=== PATIENT | male | born 1990 | race Caucasian/White ===

== ENCOUNTER 2017-10-08 19:33 | Emergency (ER) | payer OTHER ==
[~2017-10-08] VITALS: Ht 175.3 cm; Wt 90.5 kg
[2017-10-08 19:56] VITALS: BP 122/59; PULSE 71; RESP 14; TEMP 98; O2SAT 98
--- NOTE | 2017-10-08 20:38 | PD ---
HPI Chief Complaint: Alcohol/Drug Intoxication Time Seen by Provider: 20:22 Travel History International Travel<30 days: No Contact w/Intl Traveler<30days: No Traveled to known affect area: No History of Present Illness HPI Patient is a 27-year-old male presenting to emergency department for detox. Patient states his been using heroin for the last week. He has a history of the same but has [facility] [employer]. Because he has been using he is unable to return there for 3 days until he no longer test positive for drugs. Patient went to [facility] for rehab, they had no beds available and transport him here, they told him that he could spend the night here until the morning. Patient has no other physical complaints at this time. Symptom onset was 1 week ago, they are chronic in nature. Patient has been clean for 3 months prior to this recent binge. Patient last used several hours prior to arrival in the emergency department. PFSH Past Medical History Medical History: Denies Significant Hx Tetanus Vaccination: Unknown Influenza Vaccination: No Past Surgical History Other Surgery: Yes (Titanium Femur) Social History Alcohol Use: Yes (18 pack Beer daily) Tobacco Use: Yes (Vape) Substance Use: Yes (heroin, cocaine, meth, Marijuana, Tarah "I DO EVERYTHING") Allergies-Medications (Allergen,Severity, Reaction): Coded Allergies: Penicillins (Verified Allergy, Unknown, 10/08/17) Reported Meds & Prescriptions Reported Meds & Active Scripts Active No Active Prescriptions or Reported Medications Review of Systems Except as stated in HPI: all other systems reviewed are Neg Psychiatric: Positive: Substance Abuse, No: Anxiety, Depression, Suicidal Ideations, Homicidal Ideation Physical Exam Narrative GENERAL: Well-developed, well-nourished, alert male. Presenting in no acute distress. SKIN: Warm and dry. HEAD: Atraumatic. Normocephalic. EYES: Pupils equal and round. No scleral icterus. No injection or drainage. ENT: No nasal bleeding or discharge. Mucous membranes pink and moist. NECK: Trachea midline. No JVD. CARDIOVASCULAR: Regular rate and rhythm. RESPIRATORY: No accessory muscle use. Clear to auscultation. Breath sounds equal bilaterally. GASTROINTESTINAL: Abdomen soft, non-tender, nondistended. Hepatic and splenic margins not palpable. MUSCULOSKELETAL: Extremities without clubbing, cyanosis, or edema. No obvious deformities. NEUROLOGICAL: Awake and alert. No obvious cranial nerve deficits. Motor grossly within normal limits. Five out of 5 muscle strength in the arms and legs. Normal speech. PSYCHIATRIC: Appropriate mood and affect; insight and judgment normal. Data Data Last Documented VS Vital Signs Date Time Temp Pulse Resp B/P (MAP) Pulse Ox O2 Delivery O2 Flow Rate FiO2 10/08/17 19:56 98.0 71 14 122/59 (80) 98 MDM Medical Decision Making Medical Screen Exam Complete: Yes Emergency Medical Condition: Yes Interpretation(s) Vital Signs Date Time Temp Pulse Resp B/P (MAP) Pulse Ox O2 Delivery O2 Flow Rate FiO2 10/08/17 19:56 98.0 71 14 122/59 (80) 98 Differential Diagnosis Substance abuse versus intoxication versus other Narrative Course Patient is a 27-year-old male presented to emerge department requesting detox. Patient was advised that this service is not offered here and he would have to follow-up with [facility] in the morning. He was advised that he would need to return every day to see if there was a bed available. Patient denied any suicidal homicidal ideations. Patient was encouraged to call a friend or family member to see if he could spend the night with them. He was encouraged return to emergency department for any new or worsening symptoms. Patient verbalized understanding. Patient stable for discharge. Diagnosis Primary Impression: Substance abuse Referrals: [facility] day Present to [facility] between 7 and 8 AM to see if there is a detox bed available. Patient Instructions: General Instructions, Medical Clearance for Substance Abuse Treatment (ED) Additional Instructions: Go to [facility] in the morning to see if there is a detox bed available Avoid use of heroin Return to emergency department for any new or worsening symptoms Med/Other Pt SpecificInfo: No Change to Meds Scripts No Active Prescriptions or Reported Meds Disposition: 01 DISCHARGE HOME Condition: Stable Bridgette Schaffer October 08, 2017 20:38
== END 2017-10-08 21:12 | disposition home or self-care (01) ==
LOC: NEPD 19:33
DX: F11.10 Opioid abuse, uncomplicated (principal); F17.290 Nicotine dependence, other tobacco product, uncomplicated; F14.90 Cocaine use, unspecified, uncomplicated; F15.90 Other stimulant use, unspecified, uncomplicated; F12.90 Cannabis use, unspecified, uncomplicated; F19.90 Other psychoactive substance use, unspecified, uncomplicated; Z88.0 Allergy status to penicillin
CPT/HCPCS: 99281

== ENCOUNTER 2017-10-12 22:42 | Emergency (ER) | payer OTHER ==
[2017-10-12 23:15] VITALS: BP 126/62; PULSE 72; RESP 18; TEMP 98.2; O2SAT 100
--- NOTE | 2017-10-13 00:31 | PD ---
HPI Chief Complaint: Alcohol/Drug Intoxication Time Seen by Provider: 00:16 Travel History International Travel<30 days: No Contact w/Intl Traveler<30days: No Traveled to known affect area: No History of Present Illness HPI 27-year-old white male presents emergency department on a voluntary basis for psychological evaluation. The patient was brought in by PD after falling out at a gas station after using IV heroin. The patient states that he is depressed after being kicked out of a sober living facility at [facility] by the [facility]. He is using IV heroin. Patient states that he had contemplated overdosing. He denies any homicidal ideation. He states that he injects whatever he can get his hands on. He denies any fever chills. No chest pain or shortness of breath. No nausea or vomiting. No abdominal pain or urine symptoms. He does smoke cigarettes and drink alcohol on occasion. [facility] Past Medical History Narrative Medical Substance abuse Diminished Hearing: No Medical other: Yes (drug addiction) Past Surgical History Other Surgery: Yes (Titanium Femur) Social History Alcohol Use: Yes (18 pack Beer daily) Tobacco Use: Yes (Vape) Substance Use: Yes (heroin, cocaine, meth, Marijuana, Tarah "I DO EVERYTHING") Allergies-Medications (Allergen,Severity, Reaction): Coded Allergies: Penicillins (Verified Allergy, Unknown, 10/12/17) Reported Meds & Prescriptions Reported Meds & Active Scripts Active No Active Prescriptions or Reported Medications Review of Systems General / Constitutional: No: Fever Eyes: No: Visual changes HENT: No: Headaches Cardiovascular: No: Chest Pain or Discomfort Respiratory: No: Shortness of Breath Gastrointestinal: No: Abdominal Pain Genitourinary: No: Dysuria Musculoskeletal: No: Pain Skin: No Rash Neurologic: No: Weakness Psychiatric: No: Depression Endocrine: No: Polydipsia Hematologic/Lymphatic: No: Easy Bruising Physical Exam Narrative GENERAL: Well-nourished, well-developed patient. SKIN: Warm and dry. Patient has track brewster without evidence of abscess or infection HEAD: Normocephalic and atraumatic. EYES: No scleral icterus. No injection or drainage. ENT: No nasal drainage noted. Mucous membranes pink. Airway patent. NECK: Supple, trachea midline. Moves head freely without obvious discomfort. CARDIOVASCULAR: Regular rate and rhythm without murmurs, gallops, or rubs. RESPIRATORY: Breath sounds equal bilaterally. No accessory muscle use. GASTROINTESTINAL: Abdomen soft, non-tender, nondistended. EXTREMITIES: No cyanosis or edema. BACK: Nontender without obvious deformity. No CVA tenderness. NEURO: Patient is alert and oriented. no sensorimotor deficits. Nonfocal. Normal speech. PSYCH: No delusions. No auditory or visual hallucinations. Data Data Last Documented VS Vital Signs Date Time Temp Pulse Resp B/P (MAP) Pulse Ox O2 Delivery O2 Flow Rate FiO2 10/12/17 23:15 98.2 72 18 126/62 (83) 100 Orders Orders Complete Blood Count With Diff (10/13/17 00:22) Comprehensive Metabolic Panel (10/13/17:) Thyroid Stimulating Hormone (10/13/17:22) Psych Screen (10/13/17:) Drug Screen, Random Urine (10/13/17:22) Alcohol (Ethanol) (10/13/17 00:22) Salicylates (Aspirin) (10/13/17:22) Tylenol (Acetaminophen) (10/13/17 00:22) Labs Laboratory Tests Test 10/13/17 00:40 10/13/17 00:45 Urine Opiates Screen NEG Urine Barbiturates Screen NEG Urine Amphetamines Screen NEG Urine Benzodiazepines Screen NEG Urine Cocaine Screen NEG Urine Cannabinoids Screen NEG White Blood Count 12.1 TH/MM3 Red Blood Count 4.87 MIL/MM3 Hemoglobin 14.4 GM/DL Hematocrit 42.9 % Mean Corpuscular Volume 88.1 FL Mean Corpuscular Hemoglobin 29.6 PG Mean Corpuscular Hemoglobin Concent 33.6 % Red Cell Distribution Width 13.3 % Platelet Count 309 TH/MM3 Mean Platelet Volume 8.2 FL Neutrophils (%) (Auto) 81.4 % Lymphocytes (%) (Auto) 12.6 % Monocytes (%) (Auto) 4.9 % Eosinophils (%) (Auto) 0.6 % Basophils (%) (Auto) 0.5 % Neutrophils # (Auto) 9.8 TH/MM3 Lymphocytes # (Auto) 1.5 TH/MM3 Monocytes # (Auto) 0.6 TH/MM3 Eosinophils # (Auto) 0.1 TH/MM3 Basophils # (Auto) 0.1 TH/MM3 CBC Comment DIFF FINAL Differential Comment Blood Urea Nitrogen 6 MG/DL Creatinine 0.97 MG/DL Random Glucose 87 MG/DL Total Protein 6.8 GM/DL Albumin 3.6 GM/DL Calcium Level 8.6 MG/DL Alkaline Phosphatase 81 U/L Aspartate Amino Transf (AST/SGOT) 93 U/L Alanine Aminotransferase (ALT/SGPT) 181 U/L Total Bilirubin 0.3 MG/DL Sodium Level 142 MEQ/L Potassium Level 4.1 MEQ/L Chloride Level 104 MEQ/L Carbon Dioxide Level 32.1 MEQ/L Anion Gap 6 MEQ/L Estimat Glomerular Filtration Rate 94 ML/MIN Thyroid Stimulating Hormone 3rd Gen 0.175 uIU/ML Salicylates Level LESS THAN 1.7 MG/DL Acetaminophen Level LESS THAN 2.0 MCG/ML Ethyl Alcohol Level LESS THAN 3 MG/DL MDM Medical Decision Making Medical Screen Exam Complete: Yes Emergency Medical Condition: Yes Medical Record Reviewed: Yes Interpretation(s) Laboratory Tests Test 10/13/17 00:40 10/13/17 00:45 Urine Opiates Screen NEG Urine Barbiturates Screen NEG Urine Amphetamines Screen NEG Urine Benzodiazepines Screen NEG Urine Cocaine Screen NEG Urine Cannabinoids Screen NEG White Blood Count 12.1 TH/MM3 Red Blood Count 4.87 MIL/MM3 Hemoglobin 14.4 GM/DL Hematocrit 42.9 % Mean Corpuscular Volume 88.1 FL Mean Corpuscular Hemoglobin 29.6 PG Mean Corpuscular Hemoglobin Concent 33.6 % Red Cell Distribution Width 13.3 % Platelet Count 309 TH/MM3 Mean Platelet Volume 8.2 FL Neutrophils (%) (Auto) 81.4 % Lymphocytes (%) (Auto) 12.6 % Monocytes (%) (Auto) 4.9 % Eosinophils (%) (Auto) 0.6 % Basophils (%) (Auto) 0.5 % Neutrophils # (Auto) 9.8 TH/MM3 Lymphocytes # (Auto) 1.5 TH/MM3 Monocytes # (Auto) 0.6 TH/MM3 Eosinophils # (Auto) 0.1 TH/MM3 Basophils # (Auto) 0.1 TH/MM3 CBC Comment DIFF FINAL Differential Comment Blood Urea Nitrogen 6 MG/DL Creatinine 0.97 MG/DL Random Glucose 87 MG/DL Total Protein 6.8 GM/DL Albumin 3.6 GM/DL Calcium Level 8.6 MG/DL Alkaline Phosphatase 81 U/L Aspartate Amino Transf (AST/SGOT) 93 U/L Alanine Aminotransferase (ALT/SGPT) 181 U/L Total Bilirubin 0.3 MG/DL Sodium Level 142 MEQ/L Potassium Level 4.1 MEQ/L Chloride Level 104 MEQ/L Carbon Dioxide Level 32.1 MEQ/L Anion Gap 6 MEQ/L Estimat Glomerular Filtration Rate 94 ML/MIN Thyroid Stimulating Hormone 3rd Gen 0.175 uIU/ML Salicylates Level LESS THAN 1.7 MG/DL Acetaminophen Level LESS THAN 2.0 MCG/ML Ethyl Alcohol Level LESS THAN 3 MG/DL Differential Diagnosis MDM: High Differential diagnoses: Schizophrenia, schizoaffective disorder, bipolar, anxiety, depression, adjustment reaction, mood disorder NOS, ODD, depressive disorder NOS, substance induced mood disorder, infection,electrolyte abnormality , malingering. Narrative Course Mental health screening discussed with the patient. Psychiatric screen ordered. The patient has been medically cleared. This is medical clearance for psychiatric admission, IV drug abuse Diagnosis Primary Impression: Medical clearance for psychiatric admission Additional Impression: IV drug abuse Scripts No Active Prescriptions or Reported Meds Condition: Stable Kurt Solis October 13, 2017 00:31
[2017-10-13 00:56] LABS: AUTOMATED NEUTROPHIL # 9.8 TH/MM3 (1.8-7.7); BASOPHIL # 0.1 TH/MM3 (0-0.2); BASOPHIL % 0.5 % (0.0-2.0); EOSINOPHIL # 0.1 TH/MM3 (0-0.4); EOSINOPHIL % 0.6 % (0.0-4.0); HEMATOCRIT 42.9 % (39.0-51.0); HEMOGLOBIN 14.4 GM/DL (13.0-17.0); LYMPH % 12.6 % (9.0-44.0); LYMPHOCYTE # 1.5 TH/MM3 (1.0-4.8); MEAN CELL VOLUME 88.1 FL (80.0-100.0); MEAN CORPUSCULAR HEMOGLOBIN 29.6 PG (27.0-34.0); MEAN CORPUSCULAR HGB CONC 33.6 % (32.0-36.0); MEAN PLATELET VOLUME 8.2 FL (7.0-11.0); MONO % 4.9 % (0.0-8.0); MONOCYTE # 0.6 TH/MM3 (0-0.9); NEUT % 81.4 % (16.0-70.0); PLATELET COUNT 309 TH/MM3 (150-450); RED BLOOD COUNT 4.87 MIL/MM3 (4.50-5.90); RED CELL DISTRIBUTION WIDTH 13.3 % (11.6-17.2); WHITE BLOOD COUNT 12.1 TH/MM3 (4.0-11.0)
[2017-10-13 01:14] LABS: ACETAMINOPHEN LESS THAN 2.0 MCG/ML (10.0-30.0); ALBUMIN 3.6 GM/DL (3.4-5.0); ALT (GPT) 181 U/L (12-78); AST (GOT) 93 U/L (15-37); BICARBONATE 32.1 MEQ/L (21.0-32.0); BLOOD UREA NITROGEN 6 MG/DL (7-18); CALCIUM 8.6 MG/DL (8.5-10.1); CHLORIDE 104 MEQ/L (98-107); CREATININE 0.97 MG/DL (0.60-1.30); GLOMERULAR FILTRATION RATE 94 ML/MIN (>89); GLUCOSE,RANDOM 87 MG/DL (74-106); SODIUM (NA) 142 MEQ/L (136-145)
[2017-10-13 01:24] LABS: ALKALINE PHOSPHATASE 81 U/L (45-117); TOTAL BILIRUBIN ADULT 0.3 MG/DL (0.2-1.0); TOTAL PROTEIN 6.8 GM/DL (6.4-8.2)
[2017-10-13 08:25] VITALS: BP 122/64; PULSE 72; RESP 16; O2SAT 99
--- NOTE | 2017-10-13 09:45 | PD ---
Data Data Last Documented VS Vital Signs Date Time Temp Pulse Resp B/P (MAP) Pulse Ox O2 Delivery O2 Flow Rate FiO2 10/13/17 08:25 72 16 122/64 (83) 99 10/12/17 23:15 98.2 Orders Orders Complete Blood Count With Diff (10/13/17 00:22) Comprehensive Metabolic Panel (10/13/17 00:22) Thyroid Stimulating Hormone (10/13/17 00:22) Psych Screen (10/13/17 00:22) Drug Screen, Random Urine (10/13/17 00:22) Alcohol (Ethanol) (10/13/17 00:22) Salicylates (Aspirin) (10/13/17 00:22) Tylenol (Acetaminophen) (10/13/17 00:22) Diet Regular Basic (10/13/17 Breakfast) Labs Laboratory Tests Test 10/13/17 00:40 10/13/17 00:45 Urine Opiates Screen NEG Urine Barbiturates Screen NEG Urine Amphetamines Screen NEG Urine Benzodiazepines Screen NEG Urine Cocaine Screen NEG Urine Cannabinoids Screen NEG White Blood Count 12.1 TH/MM3 Red Blood Count 4.87 MIL/MM3 Hemoglobin 14.4 GM/DL Hematocrit 42.9 % Mean Corpuscular Volume 88.1 FL Mean Corpuscular Hemoglobin 29.6 PG Mean Corpuscular Hemoglobin Concent 33.6 % Red Cell Distribution Width 13.3 % Platelet Count 309 TH/MM3 Mean Platelet Volume 8.2 FL Neutrophils (%) (Auto) 81.4 % Lymphocytes (%) (Auto) 12.6 % Monocytes (%) (Auto) 4.9 % Eosinophils (%) (Auto) 0.6 % Basophils (%) (Auto) 0.5 % Neutrophils # (Auto) 9.8 TH/MM3 Lymphocytes # (Auto) 1.5 TH/MM3 Monocytes # (Auto) 0.6 TH/MM3 Eosinophils # (Auto) 0.1 TH/MM3 Basophils # (Auto) 0.1 TH/MM3 CBC Comment DIFF FINAL Differential Comment Blood Urea Nitrogen 6 MG/DL Creatinine 0.97 MG/DL Random Glucose 87 MG/DL Total Protein 6.8 GM/DL Albumin 3.6 GM/DL Calcium Level 8.6 MG/DL Alkaline Phosphatase 81 U/L Aspartate Amino Transf (AST/SGOT) 93 U/L Alanine Aminotransferase (ALT/SGPT) 181 U/L Total Bilirubin 0.3 MG/DL Sodium Level 142 MEQ/L Potassium Level 4.1 MEQ/L Chloride Level 104 MEQ/L Carbon Dioxide Level 32.1 MEQ/L Anion Gap 6 MEQ/L Estimat Glomerular Filtration Rate 94 ML/MIN Thyroid Stimulating Hormone 3rd Gen 0.175 uIU/ML Salicylates Level LESS THAN 1.7 MG/DL Acetaminophen Level LESS THAN 2.0 MCG/ML Ethyl Alcohol Level LESS THAN 3 MG/DL MDM Supervised Visit with LOUANN: No Narrative Course I have been informed by psychiatric staff that this patient is psychiatrically clear. They have been medically cleared as well. He does have polysubstance abuse and will be referred to [facility] outpatient counseling services. His general labs are normal except for some minor increase in LFTs. Vital signs normal. Diagnosis Primary Impression: Medical clearance for psychiatric admission Additional Impression: IV drug abuse Additional Instruction: Follow-up with primary care and [facility] outpatient rehab services Med/Other Pt SpecificInfo: Other Scripts No Active Prescriptions or Reported Meds Disposition: DISCHARGE HOME Condition: Stable Hunter Tsai MD October 13, 2017 09:45
[2017-10-13 10:06] VITALS: BP 128/70
--- NOTE | 2017-10-13 10:46 | PD ---
History of Present Illness Chief Complaint: Alcohol/Drug Intoxication Time Seen by Provider: 09:30 Travel History International Travel<30 Days: No Contact w/Intl Traveler<30days: No Known affected area: No Legal Status Legal Status: Voluntary History of Present Illness: This is a 27-year-old single, male who presents voluntarily to the ED for reported polysubstance abuse. He is well-known to this facility. He reports that he "put as much heroin as I could in a syringe and injected it". He denies any history of mental illness. Reviewed electronic medical record, labs, discuss case with staff. Patient's toxicology screen is negative. Patient denies suicidal ideation, homicidal ideation, auditory or visual hallucinations. Patient was evaluated in his room in the ED main. He was found awake, alert, and oriented 4. He was talking on the phone when I entered the room. He appeared to be in no apparent distress. His speech is clear, logical, and organized. There is no indication of internal stimulation or thought blocking. He denies being suicidal or homicidal. He does report having auditory hallucinations intermittently and when asked with a say he states "sometimes I hear mumbling". He denies any visual hallucinations. I can elicit no delusional material at this time. PFSH Past Medical History Diminished Hearing: No Medical other: Yes (drug addiction) Past Surgical History Other Surgery: Yes (Titanium Femur) Psychiatric History Psychiatric History Polysubstance abuse Hx Psychiatric Treatment: HX SUBSTANCE ABUSE History of Inpatient Treatment: No Guns or firearms in home: No Social History Hx Alcohol Use: Yes (18 pack Beer daily) Hx Tobacco Use: Yes (Vape) Hx Substance Use: Yes (heroin, cocaine, meth, Marijuana, Tarah "I DO EVERYTHING ") Other Substances Used: ADMITS TO BEING THROUGH [employer] PROGR[employer] Hx of Substance Use Treatment: Yes Allergies-Medications (Allergen,Severity, Reaction): Coded Allergies: Penicillins (Verified Allergy, Unknown, 10/12/17) Reported Meds & Prescriptions Reported Meds & Active Scripts Active No Active Prescriptions or Reported Medications Mental Status Examination Appearance: Disheveled Consciousness: Alert Orientation: x4 Motor Activity: Normal gait Speech: Unremarkable Language: Adequate Fund of Knowledge: Adequate Attention and Concentration: Adequate Memory: Unremarkable Mood: Appropriate, Good Affect: Appropriate, Euthymic Thought Process & Associations: Intact Thought Content: Appropriate Hallucination Type: Auditory (Reports occasionally hearing "mumbling") Delusion Type: None Suicidal Ideation: No Suicidal Plan: No Suicidal Intention: No Homicidal Ideation: No Homicidal Plan: No Homicidal Intention: No Insight: Adequate Judgment: Adequate MDM Medical Decision Making Medical Record Reviewed: Yes Assessment/Plan This is a 27-year-old single, male who presents to this facility with self reported depression and for polysubstance abuse. Patient's toxicology screen is negative in spite of his self reportedly injecting "as much heroin as I could put in a syringe". Upon examination this morning patient is awake, alert, and oriented 4. His speech is clear, organized, and logical. There is no indication of internal stimulation or thought blocking in spite of his claim that he hears intermittent "mumbling voices". He denies suicidal ideation, homicidal ideation, and visual hallucinations. I can elicit no delusional material. Patient appears in no distress. He reports that he was "[facility] because I did not tell them that somebody else was using drugs". He does have a job at [employer]. He does not meet inpatient admission criteria at this time and is such an admission would yield no therapeutic benefit. He will be discharged with instructions to follow-up at the [facility] outpatient detox clinic. Also be advised to return to this facility if his condition should worsen. Orders Orders Complete Blood Count With Diff (10/13/17 00:22) Comprehensive Metabolic Panel (10/13/17 00:22) Thyroid Stimulating Hormone (10/13/17 00:22) Psych Screen (10/13/17:22) Drug Screen, Random Urine (10/13/17:22) Alcohol (Ethanol) (10/13/17:22) Salicylates (Aspirin) (10/13/17 00:22) Tylenol (Acetaminophen) (10/13/17:22) Diet Regular Basic (10/13/17 Breakfast) Ed Discharge Order (10/13/17 09:46) Results Vital Signs Date Time Temp Pulse Resp B/P (MAP) Pulse Ox O2 Delivery O2 Flow Rate FiO2 5/10/18 10:06 75 19 128/70 (89) 100 10/13/17 08:25 72 16 122/64 (83) 99 10/12/17 23:15 98.2 72 18 126/62 (83) 100 Laboratory Tests Test 10/13/17 00:40 10/13/17 00:45 Urine Opiates Screen NEG Urine Barbiturates Screen NEG Urine Amphetamines Screen NEG Urine Benzodiazepines Screen NEG Urine Cocaine Screen NEG Urine Cannabinoids Screen NEG White Blood Count 12.1 Red Blood Count 4.87 Hemoglobin 14.4 Hematocrit 42.9 Mean Corpuscular Volume 88.1 Mean Corpuscular Hemoglobin 29.6 Mean Corpuscular Hemoglobin Concent 33.6 Red Cell Distribution Width 13.3 Platelet Count 309 Mean Platelet Volume 8.2 Neutrophils (%) (Auto) 81.4 Lymphocytes (%) (Auto) 12.6 Monocytes (%) (Auto) 4.9 Eosinophils (%) (Auto) 0.6 Basophils (%) (Auto) 0.5 Neutrophils # (Auto) 9.8 Lymphocytes # (Auto) 1.5 Monocytes # (Auto) 0.6 Eosinophils # (Auto) 0.1 Basophils # (Auto) 0.1 CBC Comment DIFF FINAL Differential Comment Blood Urea Nitrogen 6 Creatinine 0.97 Random Glucose 87 Total Protein 6.8 Albumin 3.6 Calcium Level 8.6 Alkaline Phosphatase 81 Aspartate Amino Transf (AST/SGOT) 93 Alanine Aminotransferase (ALT/SGPT) 181 Total Bilirubin 0.3 Sodium Level 142 Potassium Level 4.1 Chloride Level 104 Carbon Dioxide Level 32.1 Anion Gap 6 Estimat Glomerular Filtration Rate 94 Thyroid Stimulating Hormone 3rd Gen 0.175 Salicylates Level LESS THAN 1.7 Acetaminophen Level LESS THAN 2.0 Ethyl Alcohol Level LESS THAN 3 Diagnosis Primary Impression: IV drug abuse Additional Impression: Malingering Psychiatrically Cleared: Yes Departure Forms: Tests/Procedures Patient Instructions: General Instructions Additional Instructions: Follow-up with primary care and [facility]hab services Prescriptions No Active Prescriptions or Reported Meds Disposition: 01 DISCHARGE HOME Condition: Stable Problem Qualifiers Adriana Tejada October 13, 2017 10:46
== END 2017-10-13 10:09 | disposition home or self-care (01) ==
LOC: NEPD 22:42
DX: F19.10 Other psychoactive substance abuse, uncomplicated (principal); F17.210 Nicotine dependence, cigarettes, uncomplicated; Z76.5 Malingerer [conscious simulation]
CPT/HCPCS: 80053; 80307; 84443; 85025; 99283